=== PATIENT | male | born 1960 | race Caucasian/White ===

== ENCOUNTER 2018-07-28 09:07 | Outpatient (CLI) | payer BC ==
[2018-07-28] MEDS ORDERED: Gadobenate Dimeglumine 529 MG/1 ML (20ML VIAL) ONE (10:10)
--- NOTE | 2018-07-29 09:39 | MRI ---
MRI PELVIS AND PROSTATE WITH AND WITHOUT CONTRAST: HISTORY: Elevated PSA. The patient had a biopsy in May. COMPARISON: None. TECHNIQUE: Multiplanar, multisequence MR images were obtained of the pelvis and prostate with and without IV con trast. FINDINGS: There is mild hypertrophy of the central gland, consistent with BPH. There is a very small focus of low T2 signal in the posterior aspect of the prostate, near the midline. This is in the mid portion of the gland. This measures 9 mm in greatest dimension. No restricted diffusion or low signal is se en in this region on the ADC map, but evaluation of this portion of the prostate is limited secondary to artifact from air being in the patient's rectum. The seminal vesicles are intact. The neurovascular bundles are intact. No pelvic adenopathy is seen . No marrow signal abnormality is present. IMPRESSION: PI-RADS category 2-Low likelihood that a clinically significant cancer is present. POS: JAS
== END 2018-07-28 09:08 | disposition home or self-care (01) ==
LOC: TBSIIMAG 09:07
PROVIDERS: ATTEND Urology
DX: C61 Malignant neoplasm of prostate (principal)
CPT/HCPCS: 72197; A9577

== ENCOUNTER 2018-09-21 02:14 | Outpatient (CLI) | payer BC ==
[2018-09-21 16:34] LABS: Hemoglobin 15.6 g/dL (14.0-18.0); Mean Corpuscular HGB CONC 32.9 g/dL (32.0-36.0); Mean Corpuscular Hemoglobin 29.6 pg (27.0-31.0); Mean Corpuscular Volume 89.8 fL (78.0-98.0); Mean Platelet Volume 7.5 fL (7.4-10.4); Platelet Count 215 thou/uL (130-400); RBC Distribution Width 12.5 % (11.5-14.5); Red Blood Cell (RBC) Count 5.28 mill/uL (4.70-6.10); White Blood Cell (WBC) Count 7.6 thou/uL (4.8-10.8)
[2018-09-21 16:37] LABS: Bilirubin Negative (Negative); Blood, Urine Negative (Negative); Clarity CLEAR (Clear); Glucose, Urine (Dipstick) Negative (Negative); Leukocyte Negative (Negative); Nitrite Negative (Negative); Protein, Urine (Dipstick) Negative (Neg-Trace)
[2018-09-21 16:39] LABS: Bacteria/HPF None Seen HPF (None Seen); Hyaline Casts/LPF 0-3 HYALINE CAST LPF (0-3 Hyaline); Pathc Cast-AUWi Flag 0.13 (0-2.49); RBC/HPF 0-3 HPF (0-3); Squamous Epithelial None Seen HPF (0-3); WBC/HPF 0-3 HPF (0-3)
[2018-09-21 16:44] LABS: Prothrombin Time 13.2 SEC (12.0-14.7)
[2018-09-21 16:54] LABS: ALT (SGPT) 15 U/L (8-55); AST (SGOT) 15 U/L (5-34); Albumin 4.2 g/dL (3.5-5.0); Alkaline Phosphatase 76 U/L (40-150); Anion Gap 11 mmol/L (10-20); BUN (Urea Nitrogen) 20 mg/dL (8.4-25.7); Bilirubin, Total 0.6 mg/dL (0.2-1.2); Calc. Creatinine Clearance 0 mL/min (70-130); Calcium 9.6 mg/dL (7.8-10.44); Carbon Dioxide 29 mmol/L (22-29); Chloride 102 mmol/L (98-107); Estimated GFR-MDRD 68; Globulin 2.8 g/dL (2.4-3.5); Glucose 74 mg/dL (70-105); Potassium 3.8 mmol/L (3.5-5.1); Sodium 138 mmol/L (136-145)
== END 2018-09-21 02:15 | disposition home or self-care (01) ==
LOC: LABBT 02:14
PROVIDERS: ATTEND Urology
DX: Z01.812 Encounter for preprocedural laboratory examination (principal); C61 Malignant neoplasm of prostate
CPT/HCPCS: 80053; 81001; 85027; 85610; 85730; 87086; 93005; 93010

== ENCOUNTER 2018-09-21 14:00 | Inpatient (IN) | payer BC ==
[2018-10-01] MEDS ORDERED: cefOXitin Sodium 1 GM in Sodium Chloride 0.9% 100 ML IVPB SCH (06:30)
[2018-10-01] MEDS ORDERED: Gentamicin Sulfate 80 MG in Premix Bag 1 BAG IVPB SCH (06:30)
[2018-10-01] MEDS ORDERED: Fentanyl 100 MCG/2 ML VIAL ONE ×2 (06:44→07:39)
[2018-10-01] MEDS ORDERED: Midazolam HCl 2 mg/2 ml Vial ONE (06:44)
[2018-10-01] MEDS ORDERED: Fentanyl 250 MCG/5 ML VIAL ONE (06:46)
[2018-10-01] MEDS ORDERED: cefOXitin Sodium/Dextrose,Iso 1 GM in Premix Bag 1 BAG IVPB SCH (07:00)
[2018-10-01] MEDS ORDERED: Dexamethasone 4 mg/ml Vial ONE (07:13)
[2018-10-01] MEDS ORDERED: Famotidine/PF 20 mg/2ml Vial ONE (07:41)
[2018-10-01] MEDS ORDERED: Lidocaine 2% w/Epinephrine 1:200K 20 ML VIAL ONE (08:49)
[2018-10-01] MEDS ORDERED: ceFOXitin 1 GM VIAL ONE (09:42)
[2018-10-01] MEDS ORDERED: Ondansetron HCl/PF 4 MG/2 ML Vial IVP PRN (10:51)
[2018-10-01] MEDS ORDERED: Ketorolac Tromethamine 30 MG/ML VIAL IVP PRN (10:51)
[2018-10-01] MEDS ORDERED: HYDROmorphone 2 MG/ML VIAL SLOW IVP PRN (10:51)
[2018-10-01] MEDS ORDERED: Promethazine HCl 25 MG/ML VIAL SLOW IVP PRN (10:51)
[2018-10-01] MEDS ORDERED: B & O ONE (12:29)
[2018-10-01] MEDS ORDERED: Bupivacaine HCl 0.5%/Epinephrine 1:200,000/PF 30 ml Vial ONE (13:17)
[2018-10-01] MEDS ORDERED: Ondansetron PF 4 MG/2 ML Vial ONE (15:00)
[2018-10-01] MEDS ORDERED: Lidocaine 1% PF 5 ML VIAL ONE (15:00)
[2018-10-01] MEDS ORDERED: Dexamethasone 20 MG/5 ML VIAL ONE (15:00)
[2018-10-01] MEDS ORDERED: Rocuronium Bromide 10 MG/ML (10ML VIAL) ONE (15:00)
[2018-10-01] MEDS ORDERED: PROPOFOL 200 MG/20 ML VIAL ONE (15:00)
[2018-10-01] MEDS ORDERED: Glycopyrrolate 0.2 MG/ML 5 ML SYRINGE ONE (15:00)
--- NOTE | 2018-10-01 15:15 | OP ---
DATE OF PROCEDURE: 10/01/2018 SERVICE: Urology. PREOPERATIVE DIAGNOSIS: Prostate cancer. POSTOPERATIVE DIAGNOSIS: Prostate cancer. PROCEDURE PERFORMED: Robot-assisted laparoscopic prostatectomy with bilateral pelvic lymph node dissection. INDICATION FOR PROCEDURE: Mr. Inman is a 57-year-old white male, who initially presented to me with an elevated PSA of 6.3. He underwent prostate biopsies, which demonstrated Che[place] 3 + 4 prostate cancer in multiple cores. After discussion of risks and benefits, he elected to proceed forward with the prostatectomy via robotic-assisted laparoscopic form. MRI preoperatively did not demonstrate extracapsular extension. DESCRIPTION OF PROCEDURE: After identification of armband and verification of consent, the patient was brought back to the operating room, where he underwent general anesthesia with endotracheal intubation. He was then placed in the low lithotomy position with all pressure points padded, secured to the bed and then placed in moderate Trendelenburg. A Owen catheter was inserted to the patient's bladder. Insufflation was then carried out after appropriate time-out with a Veress needle at the umbilicus. This was then insufflated under high-flow and low-pressure until full pneumoperitoneum at 15 mmHg. A 12-mm port was used at the umbilicus placed, and then the camera placed through that to guide the remaining ports, which was an 11 on the right for the seismic survey assistant, 5 mm on the right, and 8 mm robotic port on the right and two 8 mm robotic ports on the left. The robot was then docked in the standard fashion, and the robotic portion of the surgery begun. A few adhesions were taken down off the sigmoid colon to allow for the rectum to be retracted cephalad. A semicircular incision was made on the anterior surface of the rectovesical pouch and dissection carried out to the vas deferens. The vas deferens and seminal vesicles were dissected thoroughly using a combination of monopolar cautery and blunt dissection, as well as bipolar toward the tail of the vas deferens. After they were completely freed up, a space was attempted to be developed along Denonvilliers fascia, however, there was a significant amount of scar tissue in this region, which resulted in a false plane being created between prostate planes. This was not recognized at this time, but due to the difficulty of proceeding forward, we left this area and went back to drop the bladder down. Incisions were made along the lateral aspect of the medial umbilical ligament on both sides into the rectovesical space until the bone arches could be seen on both sides of the superior pubic rami. The medial umbilical ligaments were then bipolared, cauterized, and divided, and the anterior surface of the bladder dissected down to drop the bladder posteriorly. The pubic arch was completely cleared free of surrounding tissue, and the periprosthetic space developed bluntly and with cautery dissection, the endopelvic spaces bilaterally were opened sharply and with combination of cautery, the periprosthetic space also developed here. The puboprostatic ligaments were taken down and attempts to divide the DVC with the vessel sealer device was attempted. However, this resulted in bleeding, which had to be secured with a [address]-1 suture. This completely ligated the DVC with no additional bleeding. Attention was then turned to the bladder neck, which was marked out with cautery until satisfied with the bladder neck margins. Dissection was carried down around the urethra to spare the bladder neck. The bladder neck was divided and the dissection carried out posteriorly until the previously dissected seminal vesicles and vas deferens were identified. These were then brought up and the previous space that had started dissection was encountered. Again, this was the wrong plane, but it was not yet identified. Attempts to dissect forward went in very obviously wrong direction. At which point, we recognized that there was no longer in the right plane. We went back to the original spot, where the prostate meets the rectum and a new dissection plane was started in the correct plane was found along Denonvilliers fascia, which then allowed for proper dissection along the posterior aspect of the Denonvilliers. Unfortunately due to the amount of difficulty in finding the correct plane, some cautery and thermal energy ended up being used along the pedicles and we elected not to perform a nerve sparing in this situation due to the alteration of the prostate anatomy and difficulty in attempting to adequately save the nerve tissue. The primary goal was to remove all the cancer and thus, Nerve-sparing had to be sacrificed. The correct pedicles were identified and prostate was then dissected free up to the apex of the prostate. The urethra was dissected free using a combination of sharp dissection and monopolar cautery, and then sharply divided with a nice urethral stump. The rectourethralis muscle was then divided sharply and with cautery, which resulted in freeing of the entire prostate, which was deposited into the right pericolic gutter. There was some minor bleeding from some of the rectourethralis muscle, which was cauterized with the bipolar, taking care to be far away from the rectum. No additional bleeding was identified here, so lymph node dissections were performed bilaterally using the margins of the iliac vein cephalad, superior pubic rami inferiorly, obturator nerve posteriorly, and circumflex femoral vein anteriorly. All the intervening tissue that could safely be removed, deposited into the right pericolic gutter for later retrieval. The Cole stitch was then used with 2-0 Vicryl on an SH to place at the bladder neck and also through the rectourethralis muscle to reapproximate the two structures. An anastomotic stitch using the 2-0 V-Loc was then used to circumferentially close the bladder neck in a watertight fashion. The final catheter, which was an 18-Moroccan catheter was inserted with ease into the bladder and 15 mL of sterile water placed into the balloon. The bladder was leak checked and despite filling up to approximately 300 mL, there would not appear to be any leak at the anastomosis. Satisfied, the anastomotic stitches were tied down and the sutures cut. A drain was brought in through the #3 arm and Tisseel was sprayed over the DVC, periprosthetic space, pubic arch in both lymph node areas. The Endo pouch was then brought in through the seismic survey assistant port, and all the specimens including preprostatic fat, bilateral pelvic lymph nodes, prostate and seminal vesicles were all deposited into the pouch. The robot was then undocked, and the Cheikh-Guillermo used to close the 11 seismic survey assistant port on the right. Prior to that, the string was transferred from the seismic survey assistant port to the middle umbilical port. The umbilical incision was extended laterally slightly to allow for removal and extraction of the specimen. The defect in the fascia was closed with 0 Vicryl on a UR-6 in a [id number] fashion and the skin at all sites closed with a 4-0 Monocryl in a subcuticular fashion. A drain stitch was placed on the DONOVAN drain on the left. A rectal examination was performed. There was no blood on examining finger, and a B and O suppository was placed into the patient's rectum. The patient was then taken out of positioning, had his catheter affixed with a StatLock, was awakened and taken to PACU for recovery in stable condition. COMPLICATIONS: None. ESTIMATED BLOOD LOSS: 150 mL. RETAINED TUBES AND DRAINS: #19 DONOVAN drain on the left and an 18-Moroccan Owen catheter with 15 mL of sterile water in the balloon. SPECIMENS: Prostate bilateral vas deferens and seminal vesicles, bilateral pelvic lymph nodes and pre prostatic fat. DISPOSITION: The patient will be admitted to the hospital for postoperative recovery. He will be discharged once he has fully recovered and surveillance and postoperative care will be handled on outpatient basis. Job ID: [id number]
[2018-10-01 15:18] LABS: Hemoglobin 15.2 g/dL (14.0-18.0); Mean Corpuscular HGB CONC 34.6 g/dL (32.0-36.0); Mean Corpuscular Hemoglobin 31.3 pg (27.0-31.0); Mean Corpuscular Volume 90.2 fL (78.0-98.0); Mean Platelet Volume 6.7 fL (7.4-10.4); Platelet Count 190 thou/uL (130-400); RBC Distribution Width 12.2 % (11.5-14.5); Red Blood Cell (RBC) Count 4.85 mill/uL (4.70-6.10); White Blood Cell (WBC) Count 12.2 thou/uL (4.8-10.8)
[2018-10-01 15:37] LABS: Anion Gap 11 mmol/L (10-20); BUN (Urea Nitrogen) 19 mg/dL (8.4-25.7); Calc. Creatinine Clearance 85 mL/min (70-130); Calcium 9.3 mg/dL (7.8-10.44); Carbon Dioxide 26 mmol/L (22-29); Chloride 103 mmol/L (98-107); Estimated GFR-MDRD 69; Glucose 142 mg/dL (70-105); Potassium 4.4 mmol/L (3.5-5.1); Sodium 136 mmol/L (136-145)
[2018-10-01] MEDS ORDERED: hydrALAZINE 20 MG/ML VIAL SLOW IVP PRN (19:24)
[2018-10-01] MEDS ORDERED: Mag-Al 1200 mg/1200 mg/30 ML UDCUP PO PRN (19:24)
[2018-10-01] MEDS ORDERED: Fentanyl 100 MCG/2 ML VIAL SLOW IVP PRN (19:24)
[2018-10-01] MEDS ORDERED: oxyCODONE 5 MG TAB PO PRN ×2 (19:24)
[2018-10-01] MEDS ORDERED: Hyoscyamine Sulfate SL 0.125 mg Tablet SL PRN (19:24)
[2018-10-01] MEDS ORDERED: Oxybutynin 5 MG TAB PO PRN (19:24)
[2018-10-01] MEDS ORDERED: diphenhydrAMINE 25 MG CAP PO PRN (19:24)
[2018-10-01] MEDS ORDERED: Ondansetron PF 4 MG/2 ML Vial IVP PRN (19:24)
[2018-10-01] MEDS: Sodium Chloride 0.9% 1,000 ML IV SCH (20:14)
[2018-10-01] MEDS ORDERED: rOPINIRole HCl 0.5 MG TAB PO SCH (21:00)
[2018-10-01 21:14] VITALS: BMI 21.4
[2018-10-01] MEDS: Docusate 100 MG CAP PO SCH (21:28)
[2018-10-01] MEDS: cefOXitin 1.5 GM in Sodium Chloride 0.9% 100 ML IVPB SCH (21:31)
[2018-10-02] MEDS: Ketorolac Tromethamine 30 MG/ML VIAL IVP SCH ×3 (00:29→13:19)
[2018-10-02] MEDS: traMADol HCl 50 MG TAB PO SCH ×3 (00:29→13:19)
[2018-10-02] MEDS: Acetaminophen 500 MG TAB PO SCH ×3 (00:29→13:19)
[2018-10-02] MEDS: cefOXitin 1.5 GM in Sodium Chloride 0.9% 100 ML IVPB SCH ×2 (05:00→13:31)
[2018-10-02 06:15] LABS: #Lymphocytes 1.5 thou/uL (1.20-3.40); #Monocytes 1.3 thou/uL (0.11-0.59); #Neutrophils 9.1 thou/uL (1.40-6.50); %Basophils 0.1 % (0.0-1.0); %Eosinophils 0.1 % (0.0-10.0); %Lymphocytes 12.7 % (21.0-51.0); %Monocytes 10.8 % (0.0-10.0); %Neutrophils 76.3 % (42.0-75.0); Hemoglobin 13.7 g/dL (14.0-18.0); Mean Corpuscular HGB CONC 33.9 g/dL (32.0-36.0); Mean Corpuscular Hemoglobin 31.1 pg (27.0-31.0); Mean Corpuscular Volume 91.9 fL (78.0-98.0); Mean Platelet Volume 6.9 fL (7.4-10.4); Platelet Count 194 thou/uL (130-400); RBC Distribution Width 12.1 % (11.5-14.5); Red Blood Cell (RBC) Count 4.39 mill/uL (4.70-6.10)
[2018-10-02 06:31] LABS: Anion Gap 12 mmol/L (10-20); BUN (Urea Nitrogen) 17 mg/dL (8.4-25.7); Calc. Creatinine Clearance 68 mL/min (70-130); Calcium 8.9 mg/dL (7.8-10.44); Carbon Dioxide 26 mmol/L (22-29); Chloride 104 mmol/L (98-107); Estimated GFR-MDRD 57; Glucose 110 mg/dL (70-105); Potassium 4.2 mmol/L (3.5-5.1); Sodium 138 mmol/L (136-145)
[2018-10-02] MEDS: Docusate 100 MG CAP PO SCH (08:17)
[2018-10-02] MEDS: Sodium Chloride 0.9% 1,000 ML IV SCH (13:40)
--- NOTE | 2018-10-02 15:00 | PRG ---
DATE OF SERVICE: 10/02/2018 SUBJECTIVE: The patient feels great. He has minimal pain. He has eaten. He has been walking. He knows how to take care of his catheter. His DONOVAN only put out approximately 60 mL and was removed by the nursing staff. OBJECTIVE: VITAL SIGNS: Temperature 98, pulse 55, respirations 16, blood pressure 114/72, and saturation 98% on room air. GENERAL: No apparent distress. Communicative and alert. CARDIOVASCULAR: Regular rate and rhythm. ABDOMEN: Soft, minimally tender to palpation. Incision is clean, dry, and intact. DONOVAN serosanguineous. : Owen catheter in place, secured, completely clear yellow urine. EXTREMITIES: No edema. LABORATORY EVALUATION: The full set of labs are in the [employer] system, which I have reviewed. Of note, the patient's white count is 12, hemoglobin of 13.7, platelet count of 194, and creatinine is 1.3. ASSESSMENT AND PLAN: A 57-year-old white male with grade group 2 prostate cancer, status post robotic prostatectomy, postop day #1 recovering excellently. He has met all criteria for discharge and should be able to be discharged home with his catheter in place. The DONOVAN drain was removed by the nursing staff. I have gone over all of his discharge instructions with him verbally and they were written down as well on his discharge paperwork. It was stressed to him again the importance of taking care of his catheter. I will see him again on October 13 for his void trial. Job ID: [id number]
[2018-10-02 16:07] VITALS: BP 112/70; TEMP 97.6
--- NOTE | 2018-10-02 18:59 | DIS ---
DATE OF ADMISSION: 10/01/2018 DATE OF DISCHARGE: 10/02/2018 ADMITTING DIAGNOSIS: Prostate cancer. DISCHARGE DIAGNOSIS: Prostate cancer. PROCEDURES PERFORMED: Robot-assisted laparoscopic prostatectomy with bilateral pelvic lymph node dissection. BRIEF HISTORY: Mr. Inman is a 57-year-old white male with intermediate risk Grade Group 2 prostate cancer, [place] 3+4 with PSA of 6.3. He had an elective prostatectomy, which is why he was being admitted to the hospital. HOSPITAL COURSE: After his surgery (please see operative note for details), the patient was admitted to the hospital for recovery. He has a #19 DONOVAN drain and a Owen catheter, which was draining clear. He was on the ERAS protocol, which was implemented fully including scheduled Toradol, acetaminophen, and tramadol. The patient did very well with minimal pain overnight. He was on clear liquids and was advanced to regular diet, which he tolerated in the morning. He was able to walk on his own, had completely clear urination via the catheter with no blood. His DONOVAN only put out 60 mL. His labs in the morning were good and he was deemed stable for discharge. DISPOSITION: Discharged to home. DISCHARGE CONDITION: Good. DISCHARGE INSTRUCTIONS: Include no heavy lifting or strenuous activity. Keep catheter secured and avoid tugging at all times. He is not to lift over [address] with the catheter in. He is to notify me for problems with his catheter, nondrainage, significant hematuria, chest pain, shortness of breath, lower extremity swelling, fevers, or any other concerning signs or symptoms that he may have. His followup will be on October 13 for a void trial. Job ID: [id number]
== END 2018-10-02 18:02 | disposition home or self-care (01) | DRG 708 ==
LOC: SURG A 10-01 05:55
PROVIDERS: ADMIT Urology; ATTEND Urology
PROC: 0VT04ZZ Resection of Prostate, Percutaneous Endoscopic Approach (ICD-10-PCS; principal; 2018-10-01)
PROC: 0VT34ZZ Resection of Bilateral Seminal Vesicles, Percutaneous Endoscopic Approach (ICD-10-PCS; 2018-10-01)
PROC: 8E0W4CZ Robotic Assisted Procedure of Trunk Region, Percutaneous Endoscopic Approach (ICD-10-PCS; 2018-10-01)
PROC: 0VBQ4ZZ Excision of Bilateral Vas Deferens, Percutaneous Endoscopic Approach (ICD-10-PCS; 2018-10-01)
DX: C61 Malignant neoplasm of prostate (principal); Z88.2 Allergy status to sulfonamides; Z88.1 Allergy status to other antibiotic agents
CPT/HCPCS: 36415; 80048; 85025; 85027; 86850; 86900; 86901; J0694; J1100; J1580; J1885; J2250; J3010; J3490; S0028